=== PATIENT | male | born 1975 | race Caucasian/White ===

== ENCOUNTER 2016-11-10 17:03 | Emergency (ER) | payer BC ==
[~2016-11-10] VITALS: Ht 180.3 cm; Wt 106.6 kg
[2016-11-10 17:16] VITALS: BP_SYST 145
--- NOTE | 2016-11-10 17:20 | NUR ---
Pt placed in ER waiting room in stable condition.
--- NOTE | 2016-11-10 18:12 | NUR ---
BROUGHT BACK TO [facility] BED AND JOSE MATHEW AT BEDSIDE FOR EVALUATION
[2016-11-10] MEDS ORDERED: DIPH-TET-PERTUS Vaccine 0.5 ML VIAL (ADACEL) I.M. ONE (18:15)
[2016-11-10] MEDS ORDERED: BACITRACIN 1 GM OINT TP ONE (18:15)
--- NOTE | 2016-11-10 18:20 | NUR ---
WOUND CARE BEING DONE BY JOSE MATHEW, DRESSINGS APPLIED WITH BACITRACIN. PT TOLERATED IT WELL.
[2016-11-10] MEDS ORDERED: IBUPROFEN 800 MG TABLET PO ONE (18:30)
--- NOTE | 2016-11-10 18:56 | NUR ---
Patient given written and verbal discharge instructions and verbalizes understanding. ER MD discussed with patient the results and treatment provided. Patient in stable condition. ID arm band removed. Rx of BACITRACIN, MOTRIN given. Patient educated on pain management and to follow up with PMD. Pain Scale 0/10. Opportunity for questions provided and answered.
== END 2016-11-10 18:55 | disposition home or self-care (01) ==
LOC: SED 17:03
DX: T23.201A Burn of second degree of right hand, unspecified site, initial encounter (principal); T23.271A Burn of second degree of right wrist, initial encounter; R03.0 Elevated blood-pressure reading, without diagnosis of hypertension; X10.1XXA Contact with hot food, initial encounter; Y93.G3 Activity, cooking and baking; Y92.89 Other specified places as the place of occurrence of the external cause; Y99.8 Other external cause status
CPT/HCPCS: 90715; 99284